=== PATIENT | male | born 1950 | race Caucasian/White ===

== ENCOUNTER → 2016-12-05 | Outpatient (CLI) | payer MEDICARE, OTHER ==
[~2016-12-05] MED LIST: ADVIL PM CAPLE1 EACH PO; ASPIRIN81 M2 PO; ASPIRIN81 MG PO; B COMPLEX1 TAB PO; B-12500 MCG PO; BRILINTA90 MG PO; CINNAMON ALPHA1 EACH PO; CINNAMON PO; COCONUT OIL1000 MG PO; FISH OIL 1,2001 EAC4 PO; FISH OIL500 M1 PO; FOLIC ACID1 MG PO; LAMISIL250 MG PO; LIPITOR80 MG PO; METHOTREXATE2.5 MG PO; MULTI VITAMIN1 EACH PO; PREDNISONE PO; SUPER B COMPLEX1 CAP PO; TOPROL XL PO; ZESTRIL2.5 MG PO; [UNRECOGNIZED DRUG - OTHER] PO
--- NOTE | ~2016-12-05 | CR63 ---
[facility]. [facility] A Service of [facility] & [facility] RADIOLOGY TEXT RESULTS PATIENT: ROBBIE SANDERS LOCATION: [facility] : 50 UNIT #: [id number] AGE: [address]: YENNY TEJEDA APRN SEX: M ORDER DR: [id number] [address] [address] [id number] O MR#: [id number] Acc #: [id number] NAME: ROBBIE SANDERS : 1950 SEX: M STUDY DATE/TIME: 12/05/2016 9:29 UNIT: [facility] ROOM: STUDY DESCRIPTION: CR Chest 2 View Attending Physician: Yenny Tejeda Aprn Referring Physician: Yenny Tejeda Aprn Ordering Physician: Nighat Mcfarlane M.D. Primary Care Physician: Nighat Mcfarlane M.D. MEDICAL IMAGING REPORT This report is preliminary unless electronic signature is present. EXAM PA and lateral chest INDICATION 66-year-old male with cough for 1.5 years. COMPARISON Comparison with 02/08/2016. FINDINGS There is low-volume inspiration with bibasilar atelectasis. No airspace consolidation. Heart size normal. Tortuous aorta. Degenerative changes thoracic spine. IMPRESSION No active disease. Dictated by... Chalo Nolasco M.D. THIS IS AN ELECTRONICALLY VERIFIED REPORT Chalo Nolasco M.D. at 12/05/2016 4:47 PM SANTIAGO/daniel TD: 12/05/2016 10:26 JOB #: [id number] MEDICAL IMAGING REPORT Page 1 of 1
== END | disposition home or self-care (01) ==
LOC: SRAD 09:21
DX: R05 Cough (principal)
CPT/HCPCS: 71020

== ENCOUNTER → 2016-12-12 | Outpatient (CLI) | payer MEDICARE, OTHER ==
--- NOTE | ~2016-12-12 | US128 ---
[id number] [address] [address] [id number] O MR#: [id number] Acc #: [id number] NAME: ROBBIE SANDERS : 1950 SEX: M STUDY DATE/TIME: 12/12/2016 11:32 UNIT: [facility] ROOM: STUDY DESCRIPTION: US Thyroid Attending Physician: Marlene Maradiaga A.P.R.N. Referring Physician: Marlene Maradiaga A.P.R.N. Ordering Physician: Marlene Maradiaga A.P.R.N. Primary Care Physician: Nighat Mcfarlane M.D. MEDICAL IMAGING REPORT This report is preliminary unless electronic signature is present. EXAM Thyroid ultrasound. HISTORY 1-week history of thyroid fullness on physical exam. FINDINGS The right lobe of the gland is normal in size and homogeneous in echotexture. The left lobe of the gland is normal in size and homogeneous in echotexture with the exception of a tiny 3 mm cyst of doubtful significance. IMPRESSION Normal thyroid ultrasound. 3 mm cyst in the left lobe of doubtful significance, no imaging followup recommended at this time. In addition, the tiny cystic lesion is unchanged since May 2011. Dictated by... Janes Tavares M.D. THIS IS AN ELECTRONICALLY VERIFIED REPORT Janes Tavares M.D. at 12/12/2016 4:53 PM AGATA/elvia TD: 12/12/2016 16:36 JOB #: [id number] MEDICAL IMAGING REPORT Page 1 of 1
== END | disposition home or self-care (01) ==
LOC: SGUS 10:54
DX: E07.89 Other specified disorders of thyroid (principal)
CPT/HCPCS: 76536